=== PATIENT | male | born 1970 | race Asian ===

== ENCOUNTER 2016-06-18 01:44 | Emergency (ER) | payer OTHER ==
[~2016-06-18] VITALS: Ht 177.8 cm; Wt 73.5 kg
--- NOTE | 2016-06-18 01:50 | NUR ---
TO BED 7 A 46 YO MALE BIBSELF WITH C/O SHARP PAIN BETWEEN LT SHOULDER & NECK RADIATES TO LEFT UPPER ARM STARTING NOON YESTERDAY. REPORTS TAKING ADVIL AT HOME WITHOUT RELIEF. DENIES TRAUMA. PATIENT IS AAOX4, AMBULATORY. VSS. NONDIAPHORETIC. NO SOB. GOWNED. INITIATED COMFORT MEASURES. AWAITING FOR ER MD ROCHA.
[2016-06-18] MEDS ORDERED: DEXAMETHASONE SOD PHOSPHATE 10 MG/ML VIAL ONE (02:10)
[2016-06-18] MEDS ORDERED: HYDROMORPHONE 1 MG/1 ML DISP.SYRIN ONE (02:10)
[2016-06-18] MEDS ORDERED: CARISOPRODOL 350 MG TABLET ONE (02:11)
[2016-06-18] MEDS ORDERED: DEXAMETHASONE SOD PHOSPHATE 4 MG/ML VIAL IM ONE (02:30)
[2016-06-18] MEDS ORDERED: CARISOPRODOL 350 MG TABLET PO ONE (02:30)
[2016-06-18] MEDS ORDERED: HYDROMORPHONE 1 MG/1 ML DISP.SYRIN IM ONE (02:30)
--- NOTE | 2016-06-18 02:51 | NUR ---
Patient discharged to home in stable condition. Written and verbal after care instructions given. Patient verbalizes understanding of instruction. Patient is ambulatory with steady gait. Accompanied by family to drive patient home.
[2016-06-18 02:53] VITALS: BP 118/78
== END 2016-06-18 02:54 | disposition home or self-care (01) ==
LOC: ER 01:46
DX: M54.12 Radiculopathy, cervical region (principal); M62.838 Other muscle spasm; H81.09 Meniere's disease, unspecified ear; Z88.0 Allergy status to penicillin
CPT/HCPCS: 93005; 96372 ×2; 99284; A4606; J1100; J1170; Z7610